=== PATIENT | female | born 1960 | race Caucasian/White ===

== ENCOUNTER 2016-11-02 23:35 | Emergency (ER) | payer OTHER ==
[2016-11-02] MEDS ORDERED: Sodium Chloride 0.9% 1000 ML 1,000 ML IV SCH (23:45)
[2016-11-02] MEDS ORDERED: Zofran 4 MG/2 ML VIAL IV ONE (23:48)
[2016-11-02] MEDS ORDERED: SUBLIMAZE 100 MCG/2 ML IV ONE (23:49)
[2016-11-02] MEDS ORDERED: NEOSYNEPHRINE 0.5% NASAL SPRAY/DROPS NS ONE (23:51)
--- NOTE | 2016-11-02 23:51 | ERPHSYRPT ---
- History of Present Illness Time Seen by Provider: 11/02/16 23:50 Patient Subjective Stated Complaint: reports that she blew her nose while driving at around 1830 and began to have a nose bleed that has been draining down the throat - takes ASA Triage Nursing Assessment: ambulatory to treatment area Physician History: PATIENT COMPLAINS OF SEVERE NOSE BLEED AFTER BLOWING HER NOSE AT 6:30PM TONIGHT. DENIES PAIN, INJURY OR TRAUMA. HAS BEEN TAKING ASPIRIN 325MG DAILY FOR YEARS. DENIES WEAKNESS OR DIZZINESS. Severity: severe ENT Location: nose Prearrival Treatment: no prearrival treatment Modifying Factors: Improves With: nothing Associated Symptoms: denies symptoms Allergies/Adverse Reactions: No Known Drug Allergies Allergy (Unverified 11/02/16 23:42) Home Medications: Aspirin 325 mg PO 11/02/16 [History] Hx Tetanus, Diphtheria Vaccination/Date Given: Yes Hx Influenza Vaccination/Date Given: Yes Hx Pneumococcal Vaccination/Date Given: No Immunizations Up to Date: Yes - Review of Systems Constitutional: No Fever, No Chills Eyes: No Symptoms Ears, Nose, & Throat: No Symptoms, Epistaxis Respiratory: No Symptoms, No Cough, No Dyspnea Cardiac: No Symptoms, No Chest Pain, No Edema, No Syncope Abdominal/Gastrointestinal: No Symptoms, No Abdominal Pain, No Nausea, No Vomiting, No Diarrhea Genitourinary Symptoms: No Symptoms, No Dysuria Musculoskeletal: No Back Pain, No Neck Pain Skin: No Rash Neurological: No Dizziness, No Focal Weakness, No Sensory Changes Psychological: No Symptoms Endocrine: No Symptoms All Other Systems: Reviewed and Negative - Past Medical History Pertinent Past Medical History: No - Past Surgical History Past Surgical History: Yes Female Surgical History: Dilation & Curettage - Social History Smoking Status: Never smoker Exposure to second hand smoke: No Drug Use: none Patient Lives Alone: No - Female History Hx Last Menstrual Period: menopause - Nursing Vital Signs Nursing Vital Signs: Initial Vital Signs Pulse Rate 90 Respiratory Rate 16 Blood Pressure 120/68 Pain Intensity 0 - Physical Exam General Appearance: no apparent distress, alert Eye Exam: bilateral eye: normal inspection, PERRL, EOMI Ear Exam: bilateral ear: auricle normal, canal normal, TM normal Nasal Exam: active bleeding Throat Exam: pharynx normal (NO POST PHARYNGEA HEMMORRHAGE), moist mucus membranes, No tonsillar exudate Neck Exam: supple Cardiovascular/Respiratory Exam: chest non-tender, normal breath sounds, regular rate/rhythm Abdominal Exam: non-tender, soft Neurologic Exam: alert, oriented x 3, sensation nml, No motor deficits Skin Exam: normal color, warm, dry SpO2 Interpretation: normal SpO2: 96 Oxygen Delivery: Room Air Ordered Tests: Active Orders 24 hr Category Date Time Status IV Insertion STAT Care 11/03/16 00:02 Active CBC W DIFF Stat Lab 11/02/16 23:52 Completed PROTIME WITH INR Stat Lab 11/02/16 23:52 Completed Medication Summary Generic Name Dose Route Start Last Admin Trade Name Freq PRN Reason Stop Dose Admin Sodium Chloride 1,000 mls @ 200 mls/hr 11/02/16 23:45 11/03/16 00:01 Sodium Chloride 0.9% 1000 Ml IV 12/02/16 23:44 200 mls/hr .Q5H ALISTAIR Administration Discontinued Medications Generic Name Dose Route Start Last Admin Trade Name Freq PRN Reason Stop Dose Admin Fentanyl Citrate 100 mcg 11/02/16 23:49 11/03/16 00:01 Sublimaze 100 Mcg/2 Ml IV 11/02/16 23:50 100 mcg STAT ONE Administration Fentanyl Citrate Confirm 11/02/16 23:55 Sublimaze 100 Mcg/2 Ml Administered 11/02/16 23:56 Dose 100 mcg .ROUTE .STK-MED ONE Sodium Chloride Confirm 11/02/16 23:55 Sodium Chloride 0.9% 1000 Ml Administered 11/02/16 23:56 Dose 1,000 mls @ ud .ROUTE .STK-MED ONE Ondansetron HCl 4 mg 11/02/16 23:48 11/03/16 00:01 Zofran 4 Mg/2 Ml Vial IV 11/02/16 23:49 4 mg STAT ONE Administration Ondansetron HCl Confirm 11/02/16 23:54 Zofran 4 Mg/2 Ml Vial Administered 11/02/16 23:55 Dose 4 mg .ROUTE .STK-MED ONE Phenylephrine HCl 2 ml 11/02/16 23:51 11/03/16 00:01 Neosynephrine 0.5% Nasal [place]/Drops NS 11/02/16 23:52 2 ml STAT ONE Administration Phenylephrine HCl Confirm 11/02/16 23:54 Neosynephrine 0.5% Nasal [place]/Drops Administered 11/02/16 23:55 Dose 15 ml .ROUTE .STK-MED ONE Lab/Rad Data: Laboratory Result Diagrams 11/02/16 23:52 Laboratory Results 11/02/16 11/02/16 Range/Units 23:52 23:52 WBC 7.1 (4.0-10.5) K/mm3 RBC 4.54 (4.1-5.4) M/mm3 Hgb 12.8 (12.0-16.0) gm/dl Hct 38.3 (35-47) % MCV 84.4 (78-100) fl MCH 28.2 (26-32) pg MCHC 33.4 (32-36) g/dl RDW 12.4 (11.5-14.0) % Plt Count 239 (150-450) K/mm3 MPV 9.6 H (6-9.5) fl Gran % 51.7 (36.0-66.0) % Lymphocytes % 36.8 (24.0-44.0) % Monocytes % 8.3 (0.0-12.0) % Eosinophils % 2.8 (0.00-5.0) % Basophils % 0.4 (0.0-0.4) % Basophils # 0.03 (0-0.4) INR 1.00 (0.8-3.0) - Progress Progress Note: 11/03/16 01:49 AFTER BLOWING CLOTS FROM RIGHT NARES, NEOSYNEPHRINE NASAL SPRAY APPLIED TO NARES , PATIENT OBSERVED FOR 2 HOURS. IV NORMAL SALINE 200ML/HR ZOFRAN . RE-EXAM EPISTAXIS RESOLVED. - Departure Time of Disposition: 02:00 Departure Disposition: Home Clinical Impression: EPISTAXIS RESOLVED Condition: Stable Critical Care Time: No Referrals: KATIE ESPARZA MD [Primary Care Provider] - Additional Instructions: APPLY NEOSYNEPHRINE DROPS 3 DROPS OR 1 NASAL SPRAY TO RIGHT NARES 3 TIMES DAILY. DISCONTINUE ASPIRIN. FOLLOWUP WITH YOUR FAMILY PHYSICIAN IN 1 WEEK. RETURN TO EMERGENCY FOR BLEEDING.
[2016-11-02] MEDS ORDERED: Zofran 4 MG/2 ML VIAL ONE (23:54)
[2016-11-02] MEDS ORDERED: NEOSYNEPHRINE 0.5% NASAL SPRAY/DROPS ONE (23:54)
[2016-11-02] MEDS ORDERED: SUBLIMAZE 100 MCG/2 ML ONE (23:55)
[2016-11-02] MEDS ORDERED: Sodium Chloride 0.9% 1000 ML 1,000 ML ONE (23:55)
[2016-11-03 00:01] LABS: BASOPHIL % 0.4 % (0.0-0.4); Eosinophil % 2.8 % (0.00-5.0); Granulocytes % 51.7 % (36.0-66.0); Lymphocytes % 36.8 % (24.0-44.0); Mean Cell Volume 84.4 fl (78-100); Mean Corpuscular Hemoglobin 28.2 pg (26-32); Mean Platelet Volume 9.6 fl (6-9.5); Monocytes % 8.3 % (0.0-12.0); Platelet Count 239 K/mm3 (150-450); Red Blood Count 4.54 M/mm3 (4.1-5.4); Red Cell Distribution Width 12.4 % (11.5-14.0); White Blood Count 7.1 K/mm3 (4.0-10.5)
[2016-11-03 00:11] LABS: PROTIME 11.2 SECONDS (9.95-12.35)
[2016-11-03 01:34] VITALS: BP 120/68; PULSE 90
[2016-11-03 01:52] VITALS: O2SAT 96
== END 2016-11-03 01:59 | disposition home or self-care (01) ==
LOC: ED 23:35
DX: R04.0 Epistaxis (principal); Z79.82 Long term (current) use of aspirin
CPT/HCPCS: 36000; 36415; 85025; 85610; 96360; 96361; 96374; 99283; J2405; J3010